=== PATIENT | female | born 1985 | race Caucasian/White ===

== ENCOUNTER 2017-01-22 14:39 | Emergency (ER) | payer OTHER ==
[2017-01-22 15:45] VITALS: BP 105/60
--- NOTE | 2017-01-22 16:43 | UC ---
Throat Pain/Nasal Manjinder HPI - HPI Summary HPI Summary: Marked nasal and sinus congestion/pain for 3 months, worse for the last week. Lots of pressure when she bends over. Has been using oxymetazelone nasal sprays for 3 months, states she cannot breathe without them. Also concerned that she is not getting enough oxygen and her baby is at risk. Some nosebleeds in the last week, no foul drainage or fever. - History of Current Complaint Chief Complaint: UCRespiratory Stated Complaint: SINUS PAIN,CONGESTION Time Seen by Provider: 01/22/17 15:56 Hx Obtained From: Patient ?: Yes Onset/Duration: Gradual Onset, Lasting Weeks Severity: Moderate Cough: None Associated Signs & Symptoms: Positive: Sinus Discomfort - Allergies/Home Medications Allergies/Adverse Reactions: Allergies Allergy/AdvReac Type Severity Reaction Status Date / Time No Known Allergies Allergy Verified 01/22/17 15:36 Home Medications: Home Medications NK [No Home Medications Reported] 01/22/17 [History Confirmed 01/22/17] PMH/Surg Hx/FS Hx/Imm Hx Previously Healthy: Yes - Surgical History Surgical History: Yes Surgery Procedure, Year, and Place: Ovarian cyst - Family History Known Family History: Negative: Blood Disorder - Social History Lives: With Family Alcohol Use: None Substance Use Type: None Smoking Status (MU): Never Smoked Tobacco Review of Systems Constitutional: Negative Skin: Negative Eyes: Negative ENT: Other - nasal and sinus congestion Respiratory: Negative Cardiovascular: Negative Gastrointestinal: Negative Genitourinary: Negative Motor: Negative Neurovascular: Negative Musculoskeletal: Negative Neurological: Negative Psychological: Negative All Other Systems Reviewed And Are Negative: Yes Physical Exam Triage Information Reviewed: Yes Appearance: Well-Appearing, No Pain Distress, Well-Nourished Vital Signs: Initial Vital Signs Temp 97.1 F 01/22/17 15:38 Pulse 79 01/22/17 15:38 Resp 18 01/22/17 15:38 BP 105/60 01/22/17 15:38 Pulse Ox 100 01/22/17 15:38 Vital Signs Reviewed: Yes Eye Exam: Normal Eyes: Positive: Conjunctiva Clear ENT: Positive: Hearing grossly normal, Pharynx normal, Nasal congestion - mild, TMs normal. Negative: Muffled/hoarse voice Dental Exam: Normal Neck exam: Normal Neck: Positive: Supple, Nontender, No Lymphadenopathy Respiratory Exam: Normal Respiratory: Positive: Chest non-tender, Lungs clear, Normal breath sounds, No respiratory distress, No accessory muscle use Cardiovascular Exam: Normal Cardiovascular: Positive: RRR, No Murmur Musculoskeletal Exam: Normal Neurological Exam: Normal Psychological Exam: Normal Skin Exam: Normal - Additional Comments FHT 130s Throat Pain/Nasal Course/Dx - Differential Dx/Diagnosis Provider Diagnoses: rhinitis of . rhinitis medicamentosa. sinusitis Discharge - Discharge Plan Condition: Stable Disposition: HOME Patient Education Materials: Pseudoephedrine (By mouth), Rhinosinusitis (ED) Referrals: No Primary Care Phys,NOPCP [Primary Care Provider] - Additional Instructions: The congestion in your nose and sinuses are from a combination of normal changes in and nasal decongestant overuse. If used for more than a few days, these medicines can cause rebound congestion. The only way to interrupt the cycle is to stop the medicine altogether. It can take weeks to get back to normal and is usually unpleasant. You can use topical steroids (such as nasonex or flonase), oral pseudoephedrine (not longer than 5 days), and saline rinses in the mean time. I encourage you to discuss your options with your [facility] [facility] Consultant. If you truly have trouble breathing in the throat or chest, please go to the emergency department. Your oxygen saturation in your blood today is 100% -- this means you are getting plenty of air and the baby is in no danger whatsoever. You may want to see an ear, nose throat specialist (ENT) after you deliver your baby to discuss your options around your deviated septum.
== END 2017-01-22 16:56 | disposition home or self-care (01) ==
LOC: UCEAST 14:39
DX: O26.899 Other specified pregnancy related conditions, unspecified trimester (principal); Z3A.00 Weeks of gestation of pregnancy not specified; J31.0 Chronic rhinitis; J32.9 Chronic sinusitis, unspecified
CPT/HCPCS: 99211; G0463

== ENCOUNTER 2017-02-12 08:59 | Inpatient (IN) | payer OTHER ==
[2017-02-12 09:31] LABS: ROM Internal QC QC Line Present
[2017-02-12] MEDS ORDERED: Oxytocin in LR* 20 UNITS/1,000 ML BAG IVPB ONE (12:25)
[2017-02-12] MEDS ORDERED: Oxytocin in LR* 20 UNITS/1,000 ML BAG IVPB SCH (13:00)
[2017-02-12 13:12] LABS: Hematocrit 41 % (35-47); Hemoglobin 13.7 g/dl (12.0-16.0); Mean Corpuscular HGB Conc 34 g/dl (31-36); Mean Corpuscular Hemoglobin 31 pg (27-31); Mean Corpuscular Volume 93 fL (80-97); Mean Platelet Volume 11 um3 (7.4-10.4); Red Blood Count 4.37 10^6/ul (4.0-5.4); Red Cell Distribution Width 13 % (10.5-15)
[2017-02-12] MEDS ORDERED: OBEPIDURAL* 250 ML ONE (19:14)
[2017-02-13] MEDS ORDERED: Witch Hazel PAD* JAR TOPICAL PRN (02:04)
[2017-02-13] MEDS ORDERED: Glycerin ADULT SUPP PR PRN (02:04)
[2017-02-13] MEDS ORDERED: Dibucaine 1% 28.35 GM TUBE PR PRN (02:04)
[2017-02-13] MEDS ORDERED: Acetaminophen TAB* 325 MG PO PRN (02:04)
[2017-02-13] MEDS ORDERED: Oxytocin in LR* 20 UNITS/1,000 ML BAG IVPB SCH (03:00)
[2017-02-13] MEDS ORDERED: Tetan/Diph/Pertus SYR(Tdap)* 0.5 ML SYR(BOOSTRIX) use SYR IM ONE (03:00)
[2017-02-13] MEDS ORDERED: Ammonia Inhalant* 1 EA AMP ONE (04:07)
[2017-02-13] MEDS ORDERED: Famotidine TAB* 20 MG PO PRN (07:34)
[2017-02-13] MEDS ORDERED: Sodium Citrate/Citric Acid* 15 ML UDC PO PRN (07:34)
[2017-02-13] MEDS ORDERED: Phenylephrine IV* 40 MCG/ML 10 ML SYRINGE IV PUSH PRN ×2 (07:34)
[2017-02-13] MEDS ORDERED: OBEPIDURAL* 250 ML EPIDURAL SCH (08:00)
[2017-02-13] MEDS: Ibuprofen TAB* 600 MG PO PRN ×3 (11:36→23:37)
[2017-02-13] MEDS: Docusate CAP* 100 MG PO SCH ×3 (11:37→21:30)
[2017-02-13] MEDS: Simethicone CHEW TAB* 80 MG PO SCH ×2 (15:02→15:03)
[2017-02-14] MEDS: Docusate CAP* 100 MG PO SCH ×3 (08:26→20:02)
[2017-02-14 08:56] LABS: Hematocrit 31 % (35-47); Hemoglobin 10.4 g/dl (12.0-16.0); Mean Corpuscular HGB Conc 34 g/dl (31-36); Mean Corpuscular Hemoglobin 32 pg (27-31); Mean Corpuscular Volume 93 fL (80-97); Mean Platelet Volume 10 um3 (7.4-10.4); Red Blood Count 3.31 10^6/ul (4.0-5.4); Red Cell Distribution Width 13 % (10.5-15); White Blood Count 17.8 10^3/ul (3.5-10.8)
[2017-02-14] MEDS ORDERED: Ferrous Gluconate TAB* 324 MG TAB PO SCH (09:00)
[2017-02-14] MEDS: Ibuprofen TAB* 600 MG PO PRN (20:22)
[2017-02-15 08:46] VITALS: BP 107/58
[2017-02-15] MEDS: Docusate CAP* 100 MG PO SCH (10:16)
== END 2017-02-15 14:08 | disposition home or self-care (01) | DRG 560 ==
LOC: MCHOBOUT 08:59 → MCHOB 10:20
PROVIDERS: ADMIT Obstetrics & Gynecology; ATTEND Obstetrics & Gynecology
PROC: 10E0XZZ Delivery of Products of Conception, External Approach (ICD-10-PCS; principal; 2017-02-13)
PROC: 0KQM0ZZ Repair Perineum Muscle, Open Approach (ICD-10-PCS; 2017-02-13)
DX: O48.0 Post-term pregnancy (principal); O32.6XX0 Maternal care for compound presentation, not applicable or unspecified; O70.1 Second degree perineal laceration during delivery; O69.89X0 Labor and delivery complicated by other cord complications, not applicable or unspecified; Z3A.40 40 weeks gestation of pregnancy; Z37.0 Single live birth
CPT/HCPCS: 36415; 84112; 85025; 86850; 86900; 86901; A9270-GY

== ENCOUNTER 2017-08-04 11:57 | Emergency (ER) | payer MEDICAID, OTHER ==
[2017-08-04 12:31] VITALS: BP 97/60
--- NOTE | 2017-08-04 13:38 | UC ---
Epistaxis Nasal HPI - HPI Summary HPI Summary: Pt here w/ sinus pain, pressure congestion over frontal and maxillary sinuses w / nasal congestion x 8 days. Associated sx of ear fullness and PND. Mild rhinorrhea and dry cough only when she blows her nose. Denies fever, chills, ocular pain, ST, neck pain, chest pain, SOB, ab pain, N/V/D, rash. H/o sinus issues - contacted her home PCP in [facility] who intially rx'd nasal spray with polymyxin/neopsporin + dexamethasone + phenylephrine +... no relief. Congestion is getting worse and worse. No known drug allergies. NOTE: breast feeding - child 6 months old. LMP last month. - History of Current Complaint Chief Complaint: UCRespiratory Stated Complaint: URI Time Seen by Provider: 08/04/17 13:13 Hx Obtained From: Patient, Family/Comfort Station Supervisor Hx Last Menstrual Period: 07/16/17 - Allergies/Home Medications Allergies/Adverse Reactions: Allergies Allergy/AdvReac Type Severity Reaction Status Date / Time No Known Allergies Allergy Verified 08/04/17 12:31 Home Medications: Home Medications Antibiotic Nasal [place] 1 spray BOTH NARES DAILY 08/04/17 [History] Neosynephrine Nasal [place] 1 spray BOTH NARES DAILY 08/04/17 [History] Propylhexedrine [Benzedrex Inhaler] 1 inh NA DAILY 08/04/17 [History Confirmed 08/04/17] Sinex Severe 1 spray BOTH NARES DAILY 08/04/17 [History] PMH/Surg Hx/FS Hx/Imm Hx Previously Healthy: Yes - Surgical History Surgical History: Yes Surgery Procedure, Year, and Place: Ovarian cyst - Family History Known Family History: Negative: Blood Disorder - Social History 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 Lives: With Family Alcohol Use: Weekly - small amounts with meals some nights Substance Use Type: None Smoking Status (MU): Never Smoked Tobacco - Immunization History Most Recent Influenza Vaccination: unknown Most Recent Pneumonia Vaccination: never Review of Systems Constitutional: Negative Skin: Negative Eyes: Negative ENT: Other - see HPI Respiratory: Cough - see HPI Cardiovascular: Negative Gastrointestinal: Negative Neurovascular: Negative Musculoskeletal: Negative Neurological: Negative Psychological: Negative - concerned Is Patient Immunocompromised?: No All Other Systems Reviewed And Are Negative: Yes Physical Exam Triage Information Reviewed: Yes Appearance: Well-Appearing, No Pain Distress, Well-Nourished Vital Signs: Initial Vital Signs Temp 97.9 F 08/04/17 12:21 Pulse 81 08/04/17 12:21 Resp 16 08/04/17 12:21 BP 97/60 08/04/17 12:21 Pulse Ox 97 08/04/17 12:21 Vital Signs Reviewed: Yes Eye Exam: Normal Eyes: Negative: Conjunctiva Inflamed, Discharge ENT: Positive: Hearing grossly normal, Pharynx normal, Nasal congestion - B/L edema w/ erythema and stuck on yellow mucous - frontal and maxillary sinuses TTP , TMs normal. Negative: Tonsillar swelling, Tonsillar exudate, Trismus, Muffled /hoarse voice Neck exam: Normal Neck: Positive: Supple, Nontender, No Lymphadenopathy Cardiovascular Exam: Normal Cardiovascular: Positive: RRR Abdominal Exam: Normal Abdomen Description: Positive: Nontender, No Organomegaly, Soft Bowel Sounds: Positive: Present Musculoskeletal Exam: Normal Musculoskeletal: Positive: Strength Intact Neurological Exam: Normal Neurological: Positive: Alert Psychological Exam: Normal Skin Exam: Normal Epistaxis Nasal Course/Dx - Course Course Of Treatment: Pt appears to have sinusitis. Viral vs. bacterial. Since she's progressively worse since 8 days of attempting tx, will start oral anbx and steroid as pt is quite uncomfortable w/ h/o sinus infections. She is also concerned about underlying issues like poylps, etc. Recommended using tx today and if no improvement in 3-4 days, may consult with an ENT. Reviewed danger s/ sx of when to go to ED. Pt and agree w/ plan. NOTE: advised stopping [place] rx'd nasal spray as prolonged use of phenylephrine can cause rebound swelling. - Differential Dx/Diagnosis Provider Diagnoses: Sinusitis Discharge - Discharge Plan Condition: Stable Disposition: HOME Prescriptions: Amoxicillin/Clavulanate TAB* [Augmentin TAB 875*] 875 mg PO BID #20 tab predniSONE TAB* [Deltasone TAB*] 20 mg PO DAILY #5 tab Patient Education Materials: Sinusitis (ED) Referrals: [facility] [place] [facility] REFERRAL [Outside] Viktor Hawk MD [Medical Doctor] - Additional Instructions: Advise starting antibiotics (augmentin) to kill bacteria and steroid (prednisone ) to reduce pain/pressure/swelling. Complete each course as directed. Stop using [place] prescribed nasal spray as one of the ingredients ( phenylephrine) can cause rebound swelling. Also dexamethasone may be unhealthy for breast feeding. You may use saline nasal spray for comfort and swelling. Drink plenty of fluids. You may also take ibuprofen 600mg every 6 hours with food for pain/ swelling. *If symptoms do not improve or worsen in 3-4 days, you may call ENT for consult *If you develop fever, chills, headache, eye pain, neck pain, vomiting, go to ED
== END 2017-08-04 13:55 | disposition home or self-care (01) ==
LOC: UCEAST 11:57
DX: J32.9 Chronic sinusitis, unspecified (principal)
CPT/HCPCS: 99212; G0463